=== PATIENT | female | born 1990 | race Caucasian/White ===

== ENCOUNTER 2018-08-12 19:05 | Emergency (ER) | payer OTHER ==
--- NOTE | 2018-08-12 20:02 | ED ---
Lower Extremity - HPI Summary HPI Summary: Pt is a 27 y/o female who presents to the ED c/o RLE pain. Todays he began to have a cramping pain to the posterior aspect of her right calf. The pain is rated a 3/10 in severity. She denies any numbness. Pt states that shes been sitting a lot frequently because of her school work. PMHx Lupus, but denies any hx of DVTs. Pts sister has had three DVTs. She denies the use of control. Pt denies any recent travel. - History of Current Complaint Chief Complaint: EDExtremityLower Stated Complaint: MIGHT HAVE DVT, CRAMPING PAIN PER PT Time Seen by Provider: 08/12/18 19:51 Hx Obtained From: Patient Mechanism Of Injury: Other - None Onset of Pain: Hours - Today Onset/Duration: Still Present Severity Currently: Mild Pain Intensity: 3 Pain Scale Used: 0-10 Numeric Timing: Constant Location: Is Discrete @ - posterior right calf Character Of Pain: Dull - cramping Associated Signs And Symptoms: Positive: Negative Aggravating Factor(s): Nothing Alleviating Factor(s): Nothing Able to Bear Weight: Yes Related History: Other - lupus - Allergies/Home Medications Allergies/Adverse Reactions: Allergies Allergy/AdvReac Type Severity Reaction Status Date / Time Tree Nuts Allergy Severe Anaphylatic Verified 08/12/18 19:11 Shock PEANUTS Allergy Severe Anaphylatic Uncoded 08/12/18 19:11 Shock Home Medications: Home Medications Amphetamine MIXED SALT TAB* [Adderall TAB*] 10 mg PO DAILY 08/12/18 [History Confirmed 08/12/18] BuPROPion XL* [Bupropion XL*] 300 mg PO DAILY 08/12/18 [History Confirmed ] Fluoxetine HCl 40 mg PO DAILY 08/12/18 [History Confirmed 08/12/18] Hydroxychloroquine Sulfate [Plaquenil] 200 mg PO DAILY 08/12/18 [History Confirmed 08/12/18] PMH/Surg Hx/FS Hx/Imm Hx Endocrine/Hematology History: Reports: Other Endocrine/Hematological Disorders - lupus Cardiovascular History: Denies: Hx Deep Vein Thrombosis Neurological History: Reports: Hx Migraine Infectious Disease History: No Infectious Disease History: Denies: Traveled Outside the [place] in Last 30 Days - Family History Known Family History: Positive: Blood Disorder - DVTs - sister - Social History Alcohol Use: Occasionally Hx Substance Use: Yes Substance Use Type: Reports: Marijuana Hx Tobacco Use: No Smoking Status (MU): Never Smoked Tobacco Review of Systems Positive: Myalgia - right calf cramping Negative: Numbness All Other Systems Reviewed And Are Negative: Yes Physical Exam - Summary Physical Exam Summary: GENERAL: Patient is a well-developed and nourished F who is lying comfortable in the stretcher. Patient is not in any acute respiratory distress. HEAD AND FACE: Normocephalic EYES: PERRLA, EOMI x 2. EARS: Hearing grossly intact. MOUTH: Oropharynx within normal limits. NECK: Supple, trachea is midline, no adenopathy, no JVD, no carotid bruit. CHEST: Symmetric, no tenderness at palpation LUNGS: Clear to auscultation bilaterally. No wheezing or crackles. CVS: Regular rate and rhythm, S1 and S2 present, no murmurs or gallops appreciated. ABDOMEN: Soft, non-tender. Bowel sounds are normal. No abdominal abnormal pulsations. EXTREMITIES: Full ROM in all major joints, no cyanosis or clubbing. Minimal tenderness to palpation of right posterior calf. No edema or warmth. NEURO: Alert and oriented x 3. No acute neurological deficits. Speech is normal and follows commands. SKIN: Dry and warm Triage Information Reviewed: Yes Vital Signs On Initial Exam: Initial Vitals Temp Pulse Resp BP Pulse Ox 98.1 F 96 16 119/78 100 08/12/18 19:08 08/12/18 19:08 08/12/18 19:08 08/12/18 19:08 08/12/18 19:08 Vital Signs Reviewed: Yes Diagnostics - Vital Signs Vital Signs Temp Pulse Resp BP Pulse Ox 08/12/18 19:08 98.1 F 96 16 119/78 100 - Laboratory Lab Statement: Any lab studies that have been ordered have been reviewed, and results considered in the medical decision making process. - Ultrasound No standard instances Ultrasound Interpretation Completed By: Radiologist Summary of Ultrasound Findings: Venous Doppler Study: No acute findings. No evidence of deep vein thrombosis. ED physician reviewed radiology report. Lower Extremity Course/Dx - Course Course Of Treatment: Pt is a 27 y/o female who presents to the ED c/o right calf pain. A physical exam revealed minimal tenderness to palpation of right posterior calf, no edema or warmth. A venous Doppler study was negative for DVT. Pt will be discharged with a final dx of calf pain. I discussed results with patient and she reports feeling better. She is hemodynamically stable and safe for discharge. Strict return precautions given and she will otherwise follow up with her PCP. - Diagnoses Provider Diagnoses: Calf pain Discharge - Sign-Out/Discharge Documenting (check all that apply): Patient Departure - Discharge Patient Received Moderate/Deep Sedation with Procedure: No - Discharge Plan Condition: Improved Disposition: HOME Patient Education Materials: Leg Pain (ED) Referrals: Vita Mena MD [Primary Care Provider] - (1-3 days) Additional Instructions: RETURN TO THE EMERGENCY DEPARTMENT FOR CHANGING OR WORSENING SYMPTOMS. - Billing Disposition and Condition Condition: IMPROVED Disposition: Home - Attestation Statements Document Initiated by Bette: Yes Documenting Scribe: Jenny Spears Provider For Whom Bette is Documenting (Include Credential): Jonny Marroquin MD Scribe Attestation: Jenny Guallpa, scribed for Jonny Marroquin MD on 08/13/18 at 1617. Scribe Documentation Reviewed: Yes Provider Attestation: The documentation as recorded by the Jenny rowell accurately reflects the service I personally performed and the decisions made by , Jonny Marroquin MD Status of Scribe Document: Viewed
[2018-08-12 21:34] VITALS: BP 108/71
== END 2018-08-12 21:33 | disposition home or self-care (01) ==
LOC: ED 19:05
DX: M79.661 Pain in right lower leg (principal)
CPT/HCPCS: 99281